=== PATIENT | female | born 1990 ===

== ENCOUNTER 2024-03-27 05:49 | Inpatient (IN) ==
--- NOTE | 2024-03-23 11:02 | Anesthesiology Consultation ---
Date of Service March 23, 2024 Assessment & Plan Chart Review Chart Review: Acceptable Risk for Surgery and Patient NOT seen in Pre Admission Testing Consults Requested none History Surgery Operation Date: 03/27/24 07:30 Proposed Procedures p Section in LD - Janes Branch MD Height/Weight Height: 5 ft 2.5 in Weight: 60.101 kg Allergies Allergy/AdvReac Type Severity Reaction Status Date / Time adhesive tape Allergy Severe skin Verified 03/23/24 07:37 irritation and blisters gluten Allergy Severe gluten Verified 03/23/24 07:42 intolerance No Known Drug Allergies Allergy Verified 03/23/24 07:37 Medications Home Medications Medication Instructions Recorded Confirmed Last Taken ferrous sulfate-vitamin C ER 65 1 cap PO DAILY 03/23/24 03/23/24 Unknown mg-150 mg capsule,extended release polyethylene glycol 3350 17 17 g PO DAILY PRN Constipation 03/23/24 03/23/24 Unknown gram/dose oral powder (Miralax) vit no.133-ferrous 1 tab PO QAM 03/23/24 03/23/24 Unknown fumarate 28 mg-folic acid 800 mcg tablet () Past Medical History Medical History (Updated 03/23/24 @ 07:59 by Tammy Raygoza RN) Anemia current, r/t Celiac disease suspected. Past Family History Family History (Updated 03/23/24 @ 07:49 by Tammy Raygoza RN) Other No family history of adverse response to anesthesia Past Surgical History Surgical History S/P cystoscopy and hydrodistention H/O wisdom tooth extraction History of colonoscopy History of esophagogastroduodenoscopy (EGD) Social History Smoking Status: Never smoker Do You Dip or Chew Tobacco: No Hx Alcohol Use: No Hx Substance Use: No substance use type: does not use
[2024-03-27 07:22] LABS: Hematocrit (blood only) 33.4 % (37.0-47.0); Hemoglobin 11.2 g/dl (12.0-16.0); Mean Corpuscular Hgb Conc 33.5 g/dL (32.0-36.0); Mean Corpuscular Volume 89.5 fL (80.0-100.0); Mean Platelet Volume 10.5 fL (9.4-12.4); Platelet Count 175 K/uL (130-400); RDW Coefficient of Variation 13.5 % (11.5-14.5); RDW Standard Deviation 44.5 fL (36.4-46.3); Red Blood Count 3.73 M/uL (4.20-5.40); White Blood Count 7.18 K/ul (4.8-10.8)
--- NOTE | 2024-03-27 07:36 | History & Physical Bridge Note ---
Date of Service March 27, 2024 History & Physical Bridge Note I have examined the patient, reviewed the History & Physical and in the interval since the performance of the History & Physical I have noted the following changes of clinical significance: no changes noted Bed side US: Refugio
[2024-03-27] MEDS: ACETAMINOPHEN 500 MG TAB PO SCH (08:13)
[2024-03-27] MEDS: LACTATED RINGER'S 1,000 ML IV SCH ×2 (08:53→11:30)
[2024-03-27] MEDS: ceFAZolin 2000MG 2,000 MG/15 ML SYR IV SCH (09:35)
[2024-03-27] MEDS ORDERED: MoRPHine SULFATE PF 1 MG/ML 10 ML AMP/VIAL ONE (09:36)
[2024-03-27] MEDS ORDERED: PHENYLEPHRINE HCL 10 MG/ML VIAL ONE (10:39)
[2024-03-27] MEDS ORDERED: OXYTOCIN 10 UNITS/ML VIAL ONE (10:39)
[2024-03-27] MEDS ORDERED: ONDANSETRON INJ 2 MG/ML 2 ML VIAL ONE (10:39)
[2024-03-27] MEDS ORDERED: MAGNESIUM HYDROXIDE SUSP 30 ML UDC PO PRN (10:52)
[2024-03-27] MEDS ORDERED: BENZOCAINE 20% SPRY 85 APPLN/85 GM CAN EXT PRN (10:52)
[2024-03-27] MEDS ORDERED: HYDROCORTISONE ACETATE 25 MG SUPP PR PRN (10:52)
[2024-03-27] MEDS ORDERED: CALCIUM CARBONATE 500 MG CHEWABLE TAB PO PRN (10:52)
[2024-03-27] MEDS ORDERED: SENNA 8.6 MG TAB PO PRN (10:52)
[2024-03-27] MEDS ORDERED: LACTATED RINGER'S 1,000 ML IV SCH (11:00)
[2024-03-27] MEDS ORDERED: MoRPHine SULFATE PF 1 MG/ML 10 ML AMP/VIAL INT SPINAL ONE (11:00)
[2024-03-27] MEDS ORDERED: NALBUPHINE HCL INJ 10 MG/ML AMP IV PRN (11:00)
[2024-03-27] MEDS ORDERED: SODIUM CHLORIDE 0.9% 1,000 ML IV SCH (11:00)
[2024-03-27] MEDS ORDERED: NALOXONE HCL 0.08 MG in SYRINGE 1.8 ML IV PRN (11:00)
[2024-03-27] MEDS ORDERED: DC INTRASPINAL MORPHINE SCH (11:00)
[2024-03-27] MEDS ORDERED: NO NARCOTICS OR SEDATIVES SCH (11:00)
[2024-03-27] MEDS ORDERED: MoRPHine SULFATE 2 MG/ML CARP IV PRN (11:00)
[2024-03-27] MEDS ORDERED: NALOXONE HCL 1 MG in SODIUM CHLORIDE 0.9% 1,000 ML IV PRN (11:00)
[2024-03-27] MEDS ORDERED: diphenhydrAMINE 50 MG/ML VIAL IV PRN (11:00)
[2024-03-27] MEDS ORDERED: MEPERIDINE HCL 25 MG/ML CARP/VIAL IV PRN (11:00)
[2024-03-27] MEDS ORDERED: NALOXONE HCL 0.4 MG/1 ML VIAL/CARP IV PRN (11:00)
[2024-03-27] MEDS ORDERED: PROMETHAZINE 6.25 MG/50.25 ML BAG IV PRN (11:00)
[2024-03-27] MEDS ORDERED: HYDROmorphone INJ 0.5 MG/0.5 ML SYR IV PRN (11:00)
[2024-03-27] MEDS ORDERED: ePHEDrine sulfate 50 MG/ML AMP IV PRN (11:00)
[2024-03-27] MEDS ORDERED: LACTATED RINGER'S 500 ML IV PRN (11:00)
--- NOTE | 2024-03-27 11:00 | Anesthesiology Consultation ---
Date of Service March 27, 2024 Assessment & Plan Chart Review Chart Review: Acceptable Risk for Surgery and Patient NOT seen in Pre Admission Testing Consults Requested none ASA ASA2 Proposed Anesthesia Anesthesia Type: Spinal Risk / Benefits Reviewed With: PT / POA / Parent / Guardian, Accepts Plan and Informed Consent Obtained History Surgery Operation Date: 03/27/24 07:30 Proposed Procedures p Section - Janes Branch MD Height/Weight Height: 5 ft 3 in Weight: 61.2 kg Allergies Allergy/AdvReac Type Severity Reaction Status Date / Time adhesive tape Allergy Severe skin Verified 03/23/24 07:37 irritation and blisters gluten Allergy Severe gluten Verified 03/23/24 07:42 intolerance No Known Drug Allergies Allergy Verified 03/23/24 07:37 Medications Home Medications Medication Instructions Recorded Confirmed Last Taken ferrous sulfate-vitamin C ER 65 1 cap PO DAILY 03/23/24 03/27/24 Unknown mg-150 mg capsule,extended release polyethylene glycol 3350 17 17 g PO DAILY PRN Constipation 03/23/24 03/27/24 03/25/24 12:00 gram/dose oral powder (Miralax) vit no.133-ferrous 1 tab PO QAM 03/23/24 03/27/24 03/26/24 18:30 fumarate 28 mg-folic acid 800 mcg tablet () Active Medications Generic Name Dose Route Start Last Admin Trade Name Freq PRN Reason Stop Dose Admin Acetaminophen 1,000 mg 03/27/24 06:00 03/27/24 08:13 Acetaminophen 500 Mg Tab PO 03/27/24 18:00 1,000 mg PREOP LISBETH Administration Cefazolin Sodium 2,000 mg in 15 mls @ 3.75 mls/min 03/27/24 06:00 03/27/24 09:35 Ancef 2000mg IV 03/27/24 18:00 3.75 mls/min PREOP LISBETH Administration Protocol NPO Date Last Intake of Fluids: 03/27/24 Time Last Intake of Fluids: 05:30 Past Medical History Medical History Anemia current, r/t Celiac disease suspected. Exercise / Class Metabolic Activity II 4-5 Yardwork/Stairs/Walk up hill Past Family History Family History (Updated 03/23/24 @ 07:49 by Tammy Raygoza RN) Other No family history of adverse response to anesthesia Past Surgical History Surgical History S/P cystoscopy and hydrodistention H/O wisdom tooth extraction History of colonoscopy History of esophagogastroduodenoscopy (EGD) Past Anesthesia History No Hx of Anesthesia Complications and No Family Hx of Anesthesia Complications History of PONV No Hx of PONV and No Hx of Motion Sickness Social History Smoking Status: Never smoker Do You Dip or Chew Tobacco: No Hx Alcohol Use: No Hx Substance Use: No substance use type: does not use Physical Exam Vital Signs Last Vital Signs Temp 36.7 C 03/27/24 05:55 Pulse 75 03/27/24 10:55 Resp 18 03/27/24 05:55 BP 102/53 L 03/27/24 10:55 Pulse Ox 100 03/27/24 10:54 ENMT Mouth: no dentition abnormality Thyromental Distance: > or= 3.5 Finger Breadths Mallampati Class: II Neck normal visual inspection Respiratory normal respiratory effort Auscultation: lungs clear to auscultation bilaterally Cardiovascular Rate/Rhythm: regular rate and regular rhythm Psychiatric Orientation: alert Testing Laboratory Results 03/27/24 06:47 Blood Type O Positive 03/27/24 06:47 Antibody Screen NEGATIVE 03/27/24 06:47
--- NOTE | 2024-03-27 11:03 | Operative Report ---
Post Operative Report Pre & Post Diagnosis Operation Date: 03/27/24 07:30 Pre-Op Diagnosis: Breech and Polyhydramnios Post-Op Diagnosis: Primary Section for breech presentation under services of Dr Lopez. I identified the patient and participated in the time-out.: Yes Procedure Operation Date: 03/27/24 07:30 Actual Procedures p Primary Section for breech presentation at 1007 for a viable baby boy under services of Dr Lopez. - Janes Branch MD Surgeon Janes Branch MD [employer] Dr Stahl Quantitative Blood Loss (QBL) 415 ml Findings Consistent with Post-Op Diagnosis baby was a viable male delivered at 10:07 AM in breech presentation, Apgars 8/9 weight 361 5 g maternal findings, normal uterus fallopian tubes and ovaries Specimens Placenta and cord Drains Wang catheter drained 150 mL of urine Complications none Disposition Accompanied Patient To Recovery: Yes Indications patient is a 34-year-old G1, P0 at 39 weeks and 5 days of gestation presented today for scheduled primary due to breech presentation and polyhydramnios Description of Procedure Patient was taken to operating room where a spinal anesthesia was given without difficulty. She was placed in dorsal supine position with a leftward tilt. She was prepared and draped in usual sterile fashion. A financial skin incision was made and carried through to the underlying layer of fascia with the Bovie. Fascia was incised in the midline and incision was extended laterally with the help of Perkins scissors. Then the upper aspect of the fascial incision was grasped with 2 Oh clamps elevated the underlying rectus muscles were dissected off sharply with Perkins scissors. Same thing was done on the lower incision. Then the muscles were in the midline, peritoneum was identified grasped with 2 pickups and entered sharply with Metzenbaum scissors. Peritoneal incision was extended superior and inferiorly with good visualization of the bladder. The bladder blade was inserted. Vesicouterine peritoneum was identified, grasped with pickups and entered sharply with Metzenbaum scissors, bladder flap was created digitally and bladder blade was reinserted. Uterus was noted to have large varicose veins on the lower segment. Avacular are between those veins was incised in transverse fashion, incision was extended laterally with our fingers, membranes were ruptured and abundant clear fluid was obtained. Baby's buttocks were delivered , followed by legs and arms in flexion position and then head without difficulty. Mouth and nose were suctioned there was dried on the field he was vigorously crying and moving. The cord was clamped times and cut and then the infant was handed off to the pediatric team. Then the placenta was delivered manually as intact and complete. Uterus was externalized and cleared of all clots and debris's. Uterine incision was repaired with 0 Vicryl in a running locked fashion, second umbricating layer was placed with the same suture in running locked fashion. there was some oozing spots those were controlled with 0 Vicryl with [id number] stitches. Excellent hemostasis achieved. Then the vesicouterine peritoneum was repaired with 2-0 Vicryl in a running fashion covering the incision. Cul-de-sac and the pelvis was irrigated with warm normal saline and suctioned. Incision was checked of anesthetic again. Uterus was returned to the abdomen, parietal peritoneum was reapproximated with 3-0 Vicryl in a running fashion and the muscles were reapproximated in the same suture in a running fashion. All of the fascia and rectus muscles were hemostatic. Rectus fascia was reapproximated with 3-0 Vicryl starting from both columns meeting in the midline . Skin was closed with 4-0 Monocryl in a subcuticular cuticular fashion. The mom and baby tolerated procedure well. Sponge needle instrument count was correct x3. No complications happened, I was present during whole procedure. My orthotics prosthetics assistant was needed for retraction, hemostasis and aid during delivery of infant I attest to the content of the Intraoperative Record and any orders documented therein. Any exceptions are noted below.
[2024-03-27] MEDS: OXYTOCIN 30 UNITS/LR 1,003 ML IV SCH (11:28)
[2024-03-27] MEDS: CITRIC ACID/SODIUM CITRATE 15 ML UDC PO SCH (11:30)
[2024-03-27] MEDS: SIMETHICONE 80 MG CHEW PO SCH (13:44)
[2024-03-27] MEDS: ACETAMINOPHEN 1,000 MG/100 ML VIAL IV STA (14:08)
[2024-03-27] MEDS: MEASLES, MUMPS & RUBELLA VIRUS VACCINE (MMR) 0.5ML VIAL SQ ONE (15:20)
[2024-03-27] MEDS: DIPHTHER/TETAN/PERTUS Vaccine (Tdap, Adol/Adult) 0.5mL IM ONE (15:20)
[2024-03-27] MEDS ORDERED: Nursing to Pharmacy Communication SCH (15:45)
[2024-03-27] MEDS: KETOROLAC TROMETHAMINE 15 MG/ML VIAL IV PRN (16:38)
[2024-03-27] MEDS: ONDANSETRON INJ 2 MG/ML 2 ML VIAL IV PRN (19:48)
[2024-03-27] MEDS: DOCUSATE SODIUM 100 MG CAP PO SCH (21:00)
[2024-03-27] MEDS: ACETAMINOPHEN 325 MG TAB PO SCH (21:01)
[2024-03-28] MEDS ORDERED: HYDROmorphone INJ 0.5 MG/0.5 ML SYR IV PRN (05:00)
[2024-03-28] MEDS ORDERED: diphenhydrAMINE Capsule 25 MG CAP PO PRN (05:00)
[2024-03-28] MEDS ORDERED: PROMETHAZINE 12.5 MG/50.5 ML BAG IV PRN (05:00)
[2024-03-28] MEDS ORDERED: oxyCODONE HCL IR 5 MG TAB (IMMEDIATE RELEASE) PO PRN (05:00)
[2024-03-28] MEDS ORDERED: diphenhydrAMINE 50 MG/ML VIAL IV PRN (05:00)
[2024-03-28] MEDS ORDERED: ONDANSETRON INJ 2 MG/ML 2 ML VIAL IV PRN (05:00)
[2024-03-28 07:06] LABS: Basophils # (auto) 0.03 K/uL (0.00-0.20); Basophils % (auto) 0.2 %; Hematocrit (blood only) 33.2 % (37.0-47.0); Hemoglobin 10.8 g/dl (12.0-16.0); Immature Granulocytes # (auto) 0.04 K/uL (0.01-0.20); Immature Granulocytes % (auto) 0.3 %; Lymphocytes # (auto) 1.01 K/uL (1.20-3.40); Lymphocytes % (auto) 7.8 %; Mean Corpuscular Hemoglobin 29.8 pg (25.0-34.0); Mean Corpuscular Hgb Conc 32.5 g/dL (32.0-36.0); Mean Corpuscular Volume 91.5 fL (80.0-100.0); Mean Platelet Volume 10.4 fL (9.4-12.4); Monocytes # (auto) 0.53 K/uL (0.11-0.59); Monocytes % (auto) 4.1 %; Neutrophils # (auto) 11.41 K/uL (1.40-6.50); Neutrophils % (auto) 87.6 %; Platelet Count 175 K/uL (130-400); RDW Coefficient of Variation 13.4 % (11.5-14.5); RDW Standard Deviation 45.2 fL (36.4-46.3); Red Blood Count 3.63 M/uL (4.20-5.40); White Blood Count 13.02 K/ul (4.8-10.8)
[2024-03-28] MEDS: PRENATAL VITAMIN 1 TAB PO SCH (08:59)
[2024-03-28] MEDS: FERROUS SULFATE 325 MG TAB PO SCH (08:59)
--- NOTE | 2024-03-28 09:00 | Obstetrical Progress Note ---
Date of Service March 28, 2024 Assessment & Plan Admission and Anticipated Discharge Date Admission Date: March 27, 2024 Subjective abdomen soft and non tender bowel sounds present hypoactive bandage removed incision is clean and dry no calf tenderness vaginal bleeding scant hgb 10.7 Results & Data Vital Signs (Past 12 Hours) Vital Signs Temp Pulse Resp BP Pulse Ox O2 Del Method 03/28/24 08:12 37 C 92 H 16 94/59 L 96 Room Air 03/28/24 05:00 18 99 03/28/24 04:00 16 98 03/28/24 03:15 36.8 C 60 16 112/76 99 Room Air 03/28/24 03:00 16 100 03/28/24 01:00 12 99 03/28/24 00:00 16 99 03/27/24 23:27 36.8 C 89 16 120/75 100 Room Air 03/27/24 23:00 16 98 03/27/24 22:00 16 98 03/27/24 21:00 16 99
[2024-03-28] MEDS: IBUPROFEN 600 MG TAB PO SCH (13:30)
[2024-03-28] MEDS: bisacodyL 5 MG TABEC PO SCH (19:52)
[2024-03-29 06:20] LABS: Hematocrit (blood only) 31.9 % (37.0-47.0); Hemoglobin 10.7 g/dl (12.0-16.0)
[2024-03-29 07:44] VITALS: BP 98/65; PULSE 73; RESP 16; TEMP 97.7; O2SAT 97
[2024-03-29] MEDS ORDERED: traMADol HCL 50 MG TABLET PO PRN (10:52)
[2024-03-29] MEDS ORDERED: bisacodyL 10 MG SUPP PR PRN (10:52)
[2024-03-29] MEDS ORDERED: IBUPROFEN 600 MG TAB PO PRN (11:00)
--- NOTE | 2024-03-29 11:41 | Obstetrical Progress Note ---
Date of Service March 29, 2024 Assessment & Plan Admission and Anticipated Discharge Date Admission Date: March 27, 2024 Subjective abdomen soft and non tender incision is clean and dry passing gas no calf tenderness ambulating well vaginal bleeding scant hgb 10.7 pain well controlled on tylenol Results & Data Vital Signs (Past 12 Hours) Vital Signs Temp Pulse Resp BP Pulse Ox O2 Del Method 03/29/24 07:38 36.5 C 73 16 98/65 L 97 Room Air
[2024-03-29] MEDS ORDERED: ACETAMINOPHEN 325 MG TAB PO PRN (16:52)
== END 2024-03-29 13:15 | disposition home or self-care (01) | DRG 788 ==
LOC: 4S1 → EDSTATUS 07:30 → 4E2 13:51